=== PATIENT | female | born 2000 | race Caucasian/White ===

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

== ENCOUNTER → 2023-01-08 | Outpatient (CLI) | payer OTHER ==
[~2023-01-08] MED LIST: DIFLUCAN150 MG PO; SEPTDS PO
[2023-01-08 17:24] LABS: HEMATOCRIT 36.4 % (37.0-47.0); MEAN CELL VOLUME 92.6 fl (81.0-99.0); MEAN CORPUSCULAR HGB CONC 32.4 g/dl (33.0-37.0); MEAN PLATELET VOLUME 9.4 fl (9.6-12.3); RED BLOOD COUNT 3.93 10*6/uL (4.10-5.10); RED CELL DISTRI WIDTH 11.6 % (0-14.5); WHITE BLOOD COUNT 7.1 10*3/uL (4.8-10.8)
[2023-01-08 17:51] LABS: ALKALINE PHOSPHATASE 52 U/L (46-116); BUN 11 mg/dl (9-23); CHLORIDE 108 mmol/L (98-107); CHOLESTEROL 172 mg/dL (<200); FREE T4 1.21 ng/dl (0.89-1.76); LDL CHOLESTEROL 75 mg/dL (9-159); POTASSIUM 3.6 mmol/L (3.4-5.1); SGPT/ALT 19 U/L (10-49); TOTAL PROTEIN 7.2 gm/dL (6.0-8.0); TRIGLYCERIDES 152 mg/dl (<150); VITAMIN D, 25-HYDROXY 32.8 ng/mL (30-100)
[2023-01-09 07:07] LABS: HEPATITIS B SURFACE AB Non Reactive (.); HEPATITIS B SURFACE AG Negative (Negative)
[2023-01-09 08:09] LABS: MUMPS ANTIBODIES, IGG <9.0 AU/mL (Immune >10.9)
[2023-01-09 12:08] LABS: VARICELLA-ZOSTER IGG <135 index (Immune >165)
== END | disposition home or self-care (01) ==
LOC: LAB 16:56
PROVIDERS: ATTEND Family Medicine
DX: Z02.0 Encounter for examination for admission to educational institution (principal); Z13.220 Encounter for screening for lipoid disorders; E55.9 Vitamin D deficiency, unspecified; R53.83 Other fatigue

== ENCOUNTER → 2024-03-18 | Outpatient (CLI) | payer OTHER ==
[2024-03-18 17:12] LABS: ALKALINE PHOSPHATASE 59 U/L (46-116); BUN 14 mg/dl (9-23); CHLORIDE 104 mmol/L (98-107); POTASSIUM 3.3 mmol/L (3.4-5.1); SGPT/ALT 23 U/L (5-49); TOTAL PROTEIN 7.5 gm/dL (6.0-8.0)
[2024-03-19 05:07] LABS: HEPATITIS B SURFACE AB Reactive (.); HEPATITIS B SURFACE AG Negative (Negative)
[2024-03-19 06:09] LABS: MUMPS ANTIBODIES, IGG 70.5 AU/mL (Immune >10.9); VARICELLA-ZOSTER IGG <135 index (Immune >165)
== END | disposition home or self-care (01) ==
LOC: LAB 16:22
PROVIDERS: ATTEND Family Medicine
DX: Z02.0 Encounter for examination for admission to educational institution (principal)